=== PATIENT | female | born 1995 | race Caucasian/White ===

== ENCOUNTER 2018-08-11 15:26 | Emergency (ER) | payer OTHER ==
[2018-08-11 15:39] VITALS: BP 120/67
[2018-08-11 16:18] LABS: BILIRUBIN,URINE NEGATIVE (NEGATIVE); GLUCOSE, URINE (UA) NEGATIVE (NEGATIVE); KETONES,URINE (UA) NEGATIVE (NEGATIVE); LEUKOCYTE ESTERASE, URINE MODERATE (NEGATIVE); NITRITE,URINE NEGATIVE (NEGATIVE); OCCULT BLOOD,URINE MODERATE (NEGATIVE); PROTEIN,URINE NEGATIVE (NEGATIVE); UROBILINOGEN,URINE 0.2 (NORMAL) E.U./dL (NORMAL)
[2018-08-11 16:23] LABS: CLARITY,URINE HAZY (CLEAR)
[2018-08-11 16:33] LABS: AMORPHOUS SEDIMENT,UR Few /LPF; BACTERIA,URINE Many /HPF (None Seen); SQUAMOUS EPITHELIAL CELL,UR RARE Squamous (<= Few)
--- NOTE | 2018-08-11 16:54 | ED Physician Documentation ---
PD HPI FEMALE - Stated complaint Stated Complaint: FEM - Chief complaint Chief Complaint: UTI - History obtained from History obtained from: Patient - History of Present Illness Timing - onset: Other (2 days of vaginal itching and urinary frequency with milky vag dischg. No abd/flank pain.) Review of Systems Constitutional: reports: Reviewed and negative Cardiac: reports: Reviewed and negative Respiratory: reports: Reviewed and negative PD PAST MEDICAL HISTORY - Present Medications Home Medications: Ambulatory Orders Medication Instructions Recorded Confirmed Nitrofurantoin Monohyd/M-Cryst 100 mg PO BID #10 capsule 08/11/18 [Macrobid 100 mg Capsule] Phenazopyridine HCl [Pyridium] 200 mg PO TID PRN #6 tablet 08/11/18 - Allergies Allergies/Adverse Reactions: Allergies Allergy/AdvReac Type Severity Reaction Status Date / Time No Known Drug Allergies Allergy Verified 08/11/18 15:38 PD ED PE NORMAL - Vitals Vital signs reviewed: Yes - General General: Alert and oriented X 3, No acute distress - HEENT HEENT: PERRL, EOMI - Abdomen Abdomen: Soft, Non tender - Back Back: No CVA TTP - Derm Derm: Normal color, Warm and dry - Neuro Neuro: Alert and oriented X 3 - Psych Psych: Normal mood, Normal affect Results - Vitals Vitals: Vital Signs - 24 hr 08/11/18 15:35 Temperature 36.1 C L Heart Rate 75 Respiratory 16 Rate Blood Pressure 120/67 O2 Saturation 100 Oxygen O2 Source Room air - Labs Labs: Laboratory Tests 08/11/18 15:45 Urine Color YELLOW Urine Clarity HAZY Urine pH 7.0 Ur Specific [place] 1.020 Urine Protein NEGATIVE Urine Glucose (UA) NEGATIVE Urine Ketones NEGATIVE Urine Occult Blood MODERATE H Urine Nitrite NEGATIVE Urine Bilirubin NEGATIVE Urine Urobilinogen 0.2 (NORMAL) Ur Leukocyte Esterase MODERATE H Urine RBC 11-25 H Urine WBC 11-25 H Ur Squamous Epith Cells RARE Squamous Amorphous Sediment Few Urine Bacteria Many H Ur Microscopic Review INDICATED Urine Culture Comments INDICATED PD MEDICAL DECISION MAKING - ED course ED course: Sounds like she has 2 problems, yeast infection which she is self treating with a cream and that is getting better but also a bladder infection symptoms corroborated with urinalysis. No evidence clinically of pyelonephritis. Departure - Departure Disposition: 01 Home, Self Care Clinical Impression: Cystitis Condition: Good Record reviewed to determine appropriate education?: Yes Instructions: ED UTI Cystitis Female Prescriptions: Nitrofurantoin Monohyd/M-Cryst [Macrobid 100 mg Capsule] 100 mg PO BID #10 capsule Phenazopyridine HCl [Pyridium] 200 mg PO TID PRN #6 tablet PRN Reason: dysuria Comments: We will culture your urine, the results should be done in 48-72 hours. If an antibiotic change is necessary we will call you. Return if worse in the meantime, especially if you develop increasing flank pain, fevers, or cannot keep down the medication.
[2018-08-11] MEDS ORDERED: NITROFURANTOIN MACRO 100 MG CAPSULE PO STA (16:55)
[2018-08-11] MEDS ORDERED: PHENAZOPYRIDINE 100 MG TABLET PO STA (16:58)
== END 2018-08-11 17:07 | disposition home or self-care (01) ==
LOC: ED 15:26
DX: N30.90 Cystitis, unspecified without hematuria (principal)
CPT/HCPCS: 81001; 87077; 87086; 87181; 99283; A9270; 81003

== ENCOUNTER 2021-04-02 17:17 | Emergency (ER) | payer OTHER ==
--- NOTE | 2021-04-02 18:16 | ED Physician Documentation ---
History of Present Illness - Stated complaint Stated Complaint: FEMALE - Chief complaint Chief Complaint: General - Additonal information Additional information: 25-year-old female presents emergency department for concern that her IUD may be malpositioned. She is very vigilant about checking the strings and this a.m. she noticed some discomfort in her lower pelvic area on exam of the string she felt a firm plastic piece exiting from her cervix. No fevers no dysuria. No history of sexually transmitted disease. [place] 8 [place]. 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 : None HEENT: None Psych: None Musculoskeletal: None Derm: None - Past Surgical History Past Surgical History: No - Present Medications Home Medications: Ambulatory Orders Medication Instructions Recorded Confirmed No Known Home Medications 04/02/21 04/02/21 - Allergies Allergies/Adverse Reactions: Allergies Allergy/AdvReac Type Severity Reaction Status Date / Time No Known Drug Allergies Allergy Verified 08/11/18 15:38 - Social History Does the pt smoke?: No Smoking Status: Never smoker Does the pt drink ETOH?: Yes Does the pt have substance abuse?: No - Immunizations Immunizations are current?: Yes - POLST Patient has POLST: No PD ED PE EXPANDED - General General: Alert, No acute distress - Abdomen Abdomen: Normal Bowel sounds. No: Tender to palpation - Female Female : Other (Chaperoned female exam under speculum reveals an IUD that is beginning to exit the cervix. No cervix friability or inflammation. A gentle tug on the IUD strings allows it to be easily removed intact.) Results - Vitals Vitals: Vital Signs - 24 hr 04/02/21 17:23 Temperature 36.5 C Heart Rate 69 Respiratory 16 Rate Blood Pressure 125/76 O2 Saturation 100 Oxygen O2 Source Room air PD MEDICAL DECISION MAKING - ED course Complexity details: reviewed results, re-evaluated patient, d/w patient ED course: 25-year-old female presents emergency department for evaluation of her IUD. On chaperoned pelvic exam it is certainly seem to be exiting the cervix. It was easily removed with one gentle tug intact. Patient counseled that she no longer has contraception in place and should use condoms with any future sexual encounters. She will follow up with her OB for long-term contraceptive management. Emergent return precautions discussed. Departure - Departure Disposition: 01 Home, Self Care Clinical Impression: Encounter for IUD removal Condition: Stable Record reviewed to determine appropriate education?: Yes Comments: You were seen in the ER today for concerns that your IUD may be out of place. O n exam it was exiting your cervix. We were able to retrieve it with a gentle tug. The IUD was removed intact. You can expect some minor discomfort, perhaps some vaginal spotting or even light bleeding for the next few days. I recommend that you take ibuprofen or Tylenol [id number] for this. If at any point you develop fevers suddenly severe lower abdominal pain or vomiting please return to the ER. Now that your IUD is out you can get with sexual intercourse. Please discuss long-term contraception with your OB. If you are going to be sexually active in the short-term I recommend that you use a condom.
[2021-04-02 18:35] VITALS: BP 128/65
== END 2021-04-02 18:35 | disposition home or self-care (01) ==
LOC: ED 17:17
DX: Z30.432 Encounter for removal of intrauterine contraceptive device (principal)
CPT/HCPCS: 58301; 99281; 99282

== ENCOUNTER 2021-06-28 08:28 | Emergency (ER) | payer OTHER ==
--- NOTE | 2021-06-28 08:45 | ED Physician Documentation ---
PD HPI UPPER EXT INJURY - Stated complaint Stated Complaint: RT THUMB LAC - Chief complaint Chief Complaint: Laceration - History obtained from History obtained from: Patient - History of Present Illness Location: Right, Finger (thumb base laceration from dogbite as she tried to break up fight of her dog with another. Bit/lac to thumb. No numbness.) Type of injury: Other (dog bite) Timing - onset: Today Timing - details: Abrupt onset Worsened by: Moving, Palpating Associated symptoms: Swelling. 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 : None HEENT: None Psych: None Musculoskeletal: None Derm: None - Past Surgical History Past Surgical History: No - Present Medications Home Medications: Ambulatory Orders Medication Instructions Recorded Confirmed Amox/Clav 875/125 [Augmentin] 1 each PO Q12H 5 Days #10 tablet 06/28/21 - Allergies Allergies/Adverse Reactions: Allergies Allergy/AdvReac Type Severity Reaction Status Date / Time No Known Drug Allergies Allergy Verified 08/11/18 15:38 - Social History Does the pt smoke?: No Smoking Status: Never smoker Does the pt drink ETOH?: Yes Does the pt have substance abuse?: No - Immunizations Immunizations are current?: Yes - POLST Patient has POLST: No PD ED PE NORMAL - Vitals Vital signs reviewed: Yes - General General: Alert and oriented X 3, Well developed/nourished - Derm Derm: Normal color, Warm and dry - Extremities Extremities: Other (The right thumb base dorsal aspect has 2 cm laceration down to the fatty tissue. No tendon involvement seen. Edges split with movement of the thumb. Volar aspect 1 cm laceration also subcutaneous depth.) - Neuro Neuro: Alert and oriented X 3, No motor deficit, No sensory deficit Results - Vitals Vitals: Vital Signs - 24 hr 06/28/21 06/28/21 06/28/21 08:35 08:40 09:55 Temperature 36.6 C Heart Rate 85 74 Respiratory 17 15 Rate Blood Pressure 122/79 133/88 H O2 Saturation 99 99 Oxygen O2 Source Room air Procedures - Laceration (location) right thumb Length in cm: 3 Wound type: Curved, Into subcut fat Neurovascular status: Sensory intact, Motor intact, Vascular intact Tendon involvement: Tendon intact Anesthesia: Marcaine 0.25% with epi Wound preparation: Irrigated copiously NS, Wound explored, To the base Skin layer closure: Nylon, Running, Size #-0 - enter number (4), Sutures - enter # (8) Other: Patient tolerated well, No complications, Neurovascular intact, Dressing applied, Tetanus UTD PD MEDICAL DECISION MAKING - ED course Complexity details: considered differential (Dog bite of the thumb with a laceration open on the dorsum and volar aspect. They do need suturing for closure. No signs of tendon involvement.), d/w patient ED course: ED staff notified Animal Control. Departure - Departure Disposition: 01 Home, Self Care Clinical Impression: Dog bite of thumb Qualifiers: Encounter type: initial encounter Laterality: right Qualified Code(s): S61.051A - Open bite of right thumb without damage to nail, initial encounter Condition: Stable Record reviewed to determine appropriate education?: Yes Instructions: ED Laceration Hand Prescriptions: Amox/Clav 875/125 [Augmentin] 1 each PO Q12H 5 Days #10 tablet Comments: It is okay to wash and shower. Clean off the wound twice a day with soap and water, or peroxide and water. Apply some antibiotic ointment to it to keep it moist. Also to watch for signs of infection such as purulence, redness or increasing pain. Return to your primary care or the ER at the specified time for suture removal. Suture removal 10 to 12 days. Augmentin antibiotic twice daily for 5 days to reduce chance of infection. I transmitted those to [facility] pharmacy. Tylenol or ibuprofen as needed for pains. Activity as tolerated with the thumb and try to progress to fairly normal use of it to stretch out scar tissue. Follow-up with animal control as indicated by them. Discharge Date/Time: 06/28/21 09:55
[2021-06-28] MEDS ORDERED: AMOX/CLAV 875 MG/125 MG TABLET PO STA (08:54)
[2021-06-28] MEDS ORDERED: IBUPROFEN 600 MG TABLET PO STA (08:54)
[2021-06-28 09:56] VITALS: BP 133/88
== END 2021-06-28 09:55 | disposition home or self-care (01) ==
LOC: ED 08:28
DX: S61.051A Open bite of right thumb without damage to nail, initial encounter (principal); W54.0XXA Bitten by dog, initial encounter; Y93.89 Activity, other specified
CPT/HCPCS: 12002; 99282; A9270

== ENCOUNTER 2022-02-02 10:04 | Emergency (ER) | payer OTHER ==
--- NOTE | 2022-02-02 10:16 | ED Physician Documentation ---
PD HPI NVD - Stated complaint Stated Complaint: VOMITING/HEAD PX/NAUSEA - Chief complaint Chief Complaint: Abd Pain - History obtained from History obtained from: Patient - History of Present Illness Timing - onset: Last night Timing - duration: Hours Timing - details: Abrupt onset, Still present Associated symptoms: Abdominal pain (mild cramping right lower to mid abd.), Loss of appetite, Other (having headache start this morning c/w prior migraines.). No: Fever, Near syncope / syncope Contributing factors: Other ( approx 8 weeks by dates. No OB eval as yet.). No: Sick contact Improved by: No: Vomiting Worsened by: Eating Similar symptoms before: Diagnosis (she has only had minimal nausea/vomiting so far in the . Does have history of occasional migraines, and usually takes Ibuprofen/tylenol and lays down for few hours. No prior migraine specific meds.) Recently seen: Not recently seen (has been referred to [facility] in [place] but has not gotten a first appt date as yet.) Review of Systems Constitutional: denies: Fever, Chills Nose: denies: Rhinorrhea / runny nose, Congestion Throat: denies: Sore throat Respiratory: denies: Cough GI: reports: Abdominal Pain (cramping pain right lower.), Nausea, Vomiting, Diarrhea. denies: Abdominal Swelling : reports: Now EGA (8 wks). 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 : None HEENT: None Psych: None Musculoskeletal: None Derm: None - Past Surgical History Past Surgical History: No - Present Medications Home Medications: Ambulatory Orders Medication Instructions Recorded Confirmed Ondansetron Odt [Zofran] 4 mg TL Q6H PRN #20 tablet 02/02/22 Pnv,Calcium 72/Iron/Folic Acid 1 tab PO DAILY 02/02/22 02/02/22 [ Plus Tablet] Pyridoxine HCl (Vitamin B6) 25 mg PO BID #40 tablet 02/02/22 [Vitamin B-6] - Allergies Allergies/Adverse Reactions: Allergies Allergy/AdvReac Type Severity Reaction Status Date / Time No Known Drug Allergies Allergy Verified 02/02/22 10:09 - Social History Does the pt smoke?: No Smoking Status: Never smoker Does the pt drink ETOH?: Yes Does the pt have substance abuse?: No - Immunizations Immunizations are current?: Yes - POLST Patient has POLST: No PD ED PE NORMAL - Vitals Vital signs reviewed: Yes - General General: Alert and oriented X 3, Well developed/nourished - HEENT HEENT: Pharynx benign. No: Moist mucous membranes - Neck Neck: Supple, no meningeal sign, No adenopathy - Cardiac Cardiac: RRR, No murmur - Respiratory Respiratory: Clear bilaterally - Abdomen Abdomen: Normal bowel sounds, Soft, Non tender, No organomegaly, Other (bedside U/S showing IUP with heart beat. No free fluid. Defer to formal US.) - Female Female : Deferred - Rectal Rectal: Deferred - Back Back: No CVA TTP - Derm Derm: Normal color, Warm and dry - Extremities Extremities: No edema, No calf tenderness / cord - Neuro Neuro: Alert and oriented X 3, No motor deficit, Normal speech Results - Vitals Vitals: Vital Signs - 24 hr 02/02/22 02/02/22 02/02/22 10:09 11:01 12:10 Temperature 36.2 C L Heart Rate 71 71 67 Respiratory 18 14 16 Rate Blood Pressure 132/67 H 160/65 H 111/51 L O2 Saturation 98 98 100 02/02/22 14:05 Temperature 37.1 C Heart Rate 85 Respiratory 20 Rate Blood Pressure 118/66 O2 Saturation 100 Oxygen O2 Source Room air - Labs Labs: Laboratory Tests 02/02/22 02/02/22 02/02/22 10:18 10:18 10:22 WBC 8.3 RBC 4.43 Hgb 13.4 Hct 38.8 MCV 87.6 MCH 30.2 MCHC 34.5 RDW 12.2 Plt Count 273 MPV 10.2 Neut # (Auto) 6.9 H Lymph # (Auto) 0.8 L [place] # (Auto) 0.5 Eos # (Auto) 0.1 Baso # (Auto) 0.0 Absolute Nucleated RBC 0.00 Nucleated RBC % 0.0 Sodium Potassium Chloride Carbon Dioxide Anion Gap BUN Creatinine Estimated GFR (MDRD) Glucose Calcium Total Bilirubin AST ALT Alkaline Phosphatase Total Protein Albumin Globulin Albumin/Globulin Ratio Lipase Urine Color YELLOW Urine Clarity [place]. [place] Urine pH 7.5 Ur Specific [place] 1.020 Urine Protein NEGATIVE Urine Glucose (UA) NEGATIVE Urine Ketones NEGATIVE Urine Occult Blood NEGATIVE Urine Nitrite NEGATIVE Urine Bilirubin NEGATIVE Urine Urobilinogen 0.2 (NORMAL) Ur Leukocyte Esterase NEGATIVE Urine RBC 0-5 Urine WBC 0-3 Ur Squamous Epith Cells FEW Squamous Amorphous Sediment Few Urine Bacteria Few Ur Microscopic Review INDICATED Urine Culture Comments NOT INDICATED Urine HCG, Qual POSITIVE 02/02/22 10:22 WBC RBC Hgb Hct MCV MCH MCHC RDW Plt Count MPV Neut # (Auto) Lymph # (Auto) [place] # (Auto) Eos # (Auto) Baso # (Auto) Absolute Nucleated RBC Nucleated RBC % Sodium 135 Potassium 3.9 Chloride 103 Carbon Dioxide 22 Anion Gap 10.0 BUN 9 Creatinine 0.7 Estimated GFR (MDRD) 103 Glucose 98 Calcium 9.6 Total Bilirubin 0.2 AST 22 ALT 21 Alkaline Phosphatase 30 L Total Protein 7.2 Albumin 4.0 Globulin 3.2 Albumin/Globulin Ratio 1.3 Lipase 36 Urine Color Urine Clarity Urine pH Ur Specific [place] Urine Protein Urine Glucose (UA) Urine Ketones Urine Occult Blood Urine Nitrite Urine Bilirubin Urine Urobilinogen Ur Leukocyte Esterase Urine RBC Urine WBC Ur Squamous Epith Cells Amorphous Sediment Urine Bacteria Ur Microscopic Review Urine Culture Comments Urine HCG, Qual - Rads (name of study) OB U/S Radiology: Prelim report reviewed (IUP FHR 177, no free fluid, normal U/S otherwise. ), See rad report PD MEDICAL DECISION MAKING - ED course Complexity details: reviewed results (OB U/S), re-evaluated patient (she is feeling much better, with headache gone after meds and fluids. ), considered differential (seems possibly viral GE or food related, given the abrupt and continued aspects. lCould be mainly related instead. this then triggered migraine. ), d/w patient Departure - Departure Disposition: 01 Home, Self Care Clinical Impression: Dehydration Nausea and vomiting Qualifiers: Vomiting type: unspecified Qualified Code(s): R11.2 - Nausea with vomiting, unspecified Qualifiers: Weeks of gestation: 9 weeks Qualified Code(s): Z3A.09 - 9 weeks gestation of Condition: Stable Record reviewed to determine appropriate education?: Yes Instructions: ED Nausea Vomiting Prescriptions: Pyridoxine HCl (Vitamin B6) [Vitamin B-6] 25 mg PO BID #40 tablet Ondansetron Odt [Zofran] 4 mg TL Q6H PRN #20 tablet PRN Reason: Nausea / Vomiting Comments: Its unclear if you are nausea and vomiting were related to or a coincidental "stomach flu" or food related. Hopefully its chest transient for a day or 2 and then improves. We can treat the morning sickness if that is the cause with vitamin B6 twice daily with food. To that add ondansetron every 6 hours if needed for nausea. Continue with your vitamin. Your ultrasound shows a normal with good heartbeat at essentially 9 weeks gestation. No other abnormalities on ultrasound. If you have recurring migraine, you can use the ondansetron for nausea and for now still use ibuprofen along with Tylenol as you previously would do. Its okay to use ibuprofen up through 20 weeks of and Tylenol can be used throughout the whole . Return if worse symptoms again. Otherwise follow-up with your new [facility] when assigned. I transmitted your prescription to the [facility] pharmacy. Discharge Date/Time: 02/02/22 14:06
[2022-02-02 10:26] LABS: BASOPHILS % (AUTO) 0.4 %; EOSINOPHILS # (AUTO) 0.1 10^3/uL (0.0-0.7); EOSINOPHILS % (AUTO) 1.1 %; HCT - HEMATOCRIT 38.8 % (37.0-47.0); HGB - HEMOGLOBIN 13.4 g/dL (12.0-16.0); LYMPHOCYTES # (AUTO) 0.8 10^3/uL (1.5-3.5); LYMPHOCYTES % (AUTO) 10.1 %; MEAN CORPUSCULAR HEMOGLOBIN 30.2 pg (27.0-31.0); MEAN CORPUSCULAR HGB CONC 34.5 g/dL (32.0-36.0); MEAN CORPUSCULAR VOLUME 87.6 fL (81.0-99.0); MEAN PLATELET VOLUME 10.2 fL (7.9-10.8); MONOCYTES # (AUTO) 0.5 10^3/uL (0.0-1.0); NEUTROPHILS # (AUTO) 6.9 10^3/uL (1.5-6.6); NEUTROPHILS % (AUTO) 82.2 %; PLT - PLATELET COUNT 273 10^3/uL (130-450); RED BLOOD COUNT 4.43 10^6/uL (4.20-5.40); RED CELL DISTRIBUTION WIDTH 12.2 % (12.0-15.0); WHITE BLOOD COUNT 8.3 x10^3/uL (4.8-10.8)
[2022-02-02 10:27] LABS: BILIRUBIN,URINE NEGATIVE (NEGATIVE); GLUCOSE, URINE (UA) NEGATIVE (NEGATIVE); KETONES,URINE (UA) NEGATIVE (NEGATIVE); LEUKOCYTE ESTERASE, URINE NEGATIVE (NEGATIVE); NITRITE,URINE NEGATIVE (NEGATIVE); OCCULT BLOOD,URINE NEGATIVE (NEGATIVE); PH,URINE 7.5 PH (5.0-7.5); PROTEIN,URINE NEGATIVE (NEGATIVE); UROBILINOGEN,URINE 0.2 (NORMAL) E.U./dL (NORMAL)
[2022-02-02 10:31] LABS: HCG UR QUAL POSITIVE
[2022-02-02 10:34] LABS: CLARITY,URINE SL. CLOUDY (CLEAR)
[2022-02-02 10:37] LABS: AMORPHOUS SEDIMENT,UR Few /LPF; BACTERIA,URINE Few /HPF (None Seen); RBC,URINE 0-5 /HPF (0-5); SQUAMOUS EPITHELIAL CELL,UR FEW Squamous (<= Few); WBC,URINE 0-3 /HPF (0-5)
[2022-02-02] MEDS ORDERED: KETOROLAC 15 MG/ML VIAL IVP STA (10:42)
[2022-02-02] MEDS ORDERED: SODIUM CHLORIDE 0.9% 1,000 ML IV STA (10:42)
[2022-02-02] MEDS ORDERED: diphenhydrAMINE INJ 50 MG/ML VIAL IVP STA (10:43)
[2022-02-02] MEDS ORDERED: PROCHLORPERAZINE 10 MG/2 ML VIAL IVP STA (10:43)
[2022-02-02 10:48] LABS: ALBUMIN/GLOBULIN RATIO 1.3 (1.0-2.2); BILIRUBIN,TOTAL 0.2 mg/dL (0.2-1.0); CALCIUM 9.6 mg/dL (8.5-10.3); CREATININE 0.7 mg/dL (0.4-1.0); POTASSIUM 3.9 mmol/L (3.5-5.0); TOTAL PROTEIN 7.2 g/dL (6.7-8.2)
--- NOTE | 2022-02-02 13:39 | Ultrasound Report ---
PROCEDURE: OB First Trimester INDICATIONS: vomiting; left lower pains; OUTSIDE/PRIOR DATING DATA: Last menstrual period (LMP): 12/06/2021. LMP-based estimated date of delivery (KERRY): 09/12/2022. First dating scan (date and location): 02/02/2022. Estimated date of delivery (KERRY) from first dating scan: 09/08/2022. The below data below was generated using the ultrasound KERRY of 09/08/2022 TECHNIQUE: Real-time scanning was performed of the fetus and maternal pelvic organs, with image documentation. COMPARISON: None FINDINGS: Embryo: Single living intrauterine gestation with estimated sonographic gestational age of approxima tely 8 weeks and 6 days based off crown-rump length measurement of approximately 2.15 cm. pole and yolk sac are visualized. Heart rate: 171 Measurement variability in dating: +/- 4 weeks by LMP, +/- 7 days by mean sac diameter (use before 6 weeks gestation if crown-rump length not able to be measured), +/- 5 days by crown-rump length (6-12 weeks gestation). Maternal organs: Ovaries appear unremarkable bilaterally. Maternal cervix appears visibly adequate a nd closed. IMPRESSION: Single living intrauterine gestation with estimated sonographic gestational age of approximately 8 we eks and 6 days based off crown-rump length measurement. Estimated date of delivery is approximately 11/09/2021. Recommend continued clinical surveillance with routine follow-up second trimester anatomic scre ening survey. Reviewed by: Francisco Fink MD on 02/02/2022 1:38 PM PDT Approved by: Francisco Fink MD on 02/02/2022 1:38 PM PDT Station ID: [id number]
[2022-02-02 14:05] VITALS: BP 118/66
== END 2022-02-02 14:06 | disposition home or self-care (01) ==
LOC: ED 10:04
DX: O99.281 Endocrine, nutritional and metabolic diseases complicating pregnancy, first trimester (principal); E86.0 Dehydration; Z3A.09 9 weeks gestation of pregnancy
CPT/HCPCS: 36415; 76801; 80053; 81001; 81025; 83690; 85025; 96361; 96374; 96375; 99283; 99284; J1200; 81003; 87086